=== PATIENT | female | born 1945 | race Asian ===

== ENCOUNTER 2021-10-08 08:01 | Emergency (ER) | payer MEDICAID, MEDICARE, OTHER ==
[~2021-10-08] VITALS: Ht 162.6 cm; Wt 85.0 kg
[2021-10-08 11:08] LABS: BASOPHILS % 0.6 % (0.0-2.0); EOSINOPHILS % 10.1 % (0.0-5.0); HEMATOCRIT. 40.3 % (36.0-48.0); HEMOGLOBIN. 13.4 g/dL (12.0-16.0); MEAN CORPUSCULAR HEMOGLOBIN 29.5 pg (28.0-32.0); MEAN CORPUSCULAR VOLUME 88.8 fL (81.0-99.0); MEAN PLATELET VOLUME 6.6 fl (7.4-10.4); MONOCYTES % 6.3 % (2.0-8.0); PLATELET 310 x1000/uL (130-400); RED BLOOD CELL COUNT 4.53 mill/uL (4.2-5.4); RED CELL DISTRIBUTION WIDTH 13.7 % (11.6-14.6)
[2021-10-08 11:16] LABS: CHLORIDE 105 mEq/L (98-107)
[2021-10-08] MEDS ORDERED: BENZ100C86 MT (12:13)
[2021-10-08 12:30] VITALS: BP 127/77
== END 2021-10-08 12:32 | disposition home or self-care (01) ==
LOC: ER 08:45
DX: B34.9 Viral infection, unspecified (principal); R05.9 Cough, unspecified; E11.9 Type 2 diabetes mellitus without complications; Z20.822 Contact with and (suspected) exposure to COVID-19
CPT/HCPCS: 36415; 71045; 80053; 83880; 84484; 85025; 87426; 93005; 99285